=== PATIENT | female | born 1930 | race Caucasian/White ===

== ENCOUNTER 2016-10-30 11:18 | Observation (INO) | payer MEDICARE, OTHER ==
[2016-10-30] MEDS ORDERED: ANTIVERT 25 MG PO ONE (12:09)
[2016-10-30] MEDS ORDERED: ANTIVERT 25 MG ONE (12:12)
--- NOTE | 2016-10-30 12:14 | ERPHSYRPT ---
- History of Present Illness Time Seen by Provider: 10/30/16 11:47 Source: patient, family Exam Limitations: clinical condition Patient Subjective Stated Complaint: PT REPORTS DIZZINESS ET ALL OVER WEAKNESS BEGINNING YESTERDAY-DENIES UNUSUAL PAIN-DENIES UNUSUAL DIFFICULTY AMBULATING- DENIES DIFFICYTLY WITH URINATION OR RECENT ILLNESS-DENIES NUMBNESS OR TINLGING Triage Nursing Assessment: PT PALE WARM ET DRY-WEAKNESS NOTED TO LOWER EXTREMITIES THAT PT REPORTS IS NORMAL FOR HER-MOVING UPPER EXTREMITIES WITH EASE -HAND PRESCRIPTIONIST EQUAL-PUPILS REACTIVE-ANSWERING ALL QUESTIONS CORRECTLY-RESP NONLAOBRED Physician History: PATIENT COMPLAINS OF ACUTE DIZZINESS ASSOCIATED WITH WEAKNESS SINCE YESTERDAY. TOO WEAK TO STAND WITHOUT ASSISTANCE. DENIES HEADACHE, BLURRED VISION, DYSPNEA, SLURRED SPEECH, FOCAL WEAKNESS OR NUMBNESS. Timing/Duration: yesterday Severity: moderate Character of Deficits: general (difuse) Deficits: decrease ability to stand Current Cognition: alert oriented x 3 Baseline Gait: unable to walk Associated Symptoms: weakness Allergies/Adverse Reactions: codeine [Codeine] Allergy (Mild, Verified 10/30/16 11:37) "GAS IN CHEST" Penicillins Allergy (Mild, Verified 10/30/16 11:37) HANDS ITCH Home Medications: Aspirin 81 gm Chew [Baby Aspirin 81 mg Chew] 81 mg PO DAILY 12/27/15 [ History] Atenolol 25 mg PO DAILY 12/27/15 [History] Omeprazole 40 mg PO DAILY 12/27/15 [History] Tramadol HCl 50 mg [Ultram 50 mg] 50 mg PO UD 12/27/15 [History] Hx Tetanus, Diphtheria Vaccination/Date Given: No Hx Influenza Vaccination/Date Given: No Hx Pneumococcal Vaccination/Date Given: No Immunizations Up to Date: Yes - Review of Systems Constitutional: No Fever, No Chills Eyes: No Symptoms Ears, Nose, & Throat: No Symptoms Respiratory: No Symptoms, No Cough, No Dyspnea Cardiac: No Symptoms, No Chest Pain, No Edema, No Syncope Abdominal/Gastrointestinal: No Symptoms, No Abdominal Pain, No Nausea, No Vomiting, No Diarrhea Genitourinary Symptoms: No Symptoms, No Dysuria Musculoskeletal: No Symptoms, No Back Pain, No Neck Pain Skin: No Rash Neurological: Vertigo, No Dizziness, No Focal Weakness, No Sensory Changes Psychological: No Symptoms Endocrine: No Symptoms All Other Systems: Reviewed and Negative - Past Medical History Pertinent Past Medical History: Yes Neurological History: No Pertinent History ENT History: Cataracts Cardiac History: No Pertinent History Respiratory History: No Pertinent History Endocrine Medical History: No Pertinent History Musculoskeletal History: Arthritis GI Medical History: GERD, Hernia History: No Pertinent History Psycho-Social History: No Pertinent History Female Reproductive Disorders: Other Other Medical History: hx of hernia and hiatal hernia, bulging disc, - Past Surgical History Past Surgical History: Yes Neuro Surgical History: No Pertinent History Cardiac: No Pertinent History Respiratory: No Pertinent History Gastrointestinal: Appendectomy, Cholecystectomy Genitourinary: No Pertinent History, Other Musculoskeletal: Joint Replacement Female Surgical History: Hysterectomy, Tubal Ligation Other Surgical History: RECTOCELE, varicose veins stripped resulting in venous insufficiency, bladder tie up, RIGHT KNEE ARTHROPLASTY - Social History Smoking Status: Never smoker Exposure to second hand smoke: Yes Drug Use: none Patient Lives Alone: No - Nursing Vital Signs Nursing Vital Signs: Initial Vital Signs Temperature 98.8 F Temperature Source Oral Pulse Rate 68 Respiratory Rate 20 Blood Pressure [] 160/69 Pain Intensity 0 - Physical Exam General Appearance: no apparent distress, alert Eye Exam: bilateral eye: normal inspection, PERRL, EOMI Ears, Nose, Throat Exam: normal ENT inspection, moist mucous membranes Neck Exam: normal inspection, non-tender, supple Respiratory: normal breath sounds, lungs clear, airway intact, No respiratory distress Cardiovascular: regular rate/rhythm, No edema Gastrointestinal: soft, normal bowel sounds, No tenderness, No distention Back Exam: normal inspection Extremity Exam: normal inspection, normal range of motion, No pedal edema Peripheral Pulses: carotid (R): 2+, carotid (L): 2+, femoral (R): 2+, femoral (L ): 2+, dorsalis-pedis (R): 2+, dorsalis-pedis (L): 2+ Mental Status: alert, oriented x 3 cook pie Exam: tongue midline Coordination/Gait: normal finger to nose, normal gait DTR: bicep (R): 2+, bicep (L): 2+, tricep (R): 2+, tricep (L): 2+, knee (R): 2+ , knee (L): 2+, ankle (R): 2+, ankle (L): 2+ Skin Exam: normal color, warm, dry, No rash SpO2 Interpretation: normal SpO2: 98 Oxygen Delivery: Room Air - Course EKG Interpreted by Me: RATE, Sinus Rhythm, NORMAL AXIS - Radiology Exams Chest X-ray Interpretation: Discussed w/ radiologist, Negative, No Infiltrates - CT Exams Head CT Interpretation: Discussed w/radiologist, No/Intracranial Hemorrhag Ordered Tests: Active Orders 24 hr Category Date Time Status Up With Assistance ROUTINE Activity 10/30/16 14:31 Ordered Admission/Status Order ROUTINE Care 10/30/16 14:31 Ordered Call Admit Doctor for Orders ON ADMISSION Care 10/30/16 14:32 Ordered Catheter-[employer] Andrea STAT Care 10/30/16 12:09 Active Code Status Order ROUTINE Care 10/30/16 14:31 Ordered EKG-ER Only STAT Care 10/30/16 12:11 Active IV Care Q6H Care 10/30/16 14:31 Ordered Neuro Checks Q2H Care 10/30/16 14:31 Ordered Telemetry ROUTINE Care 10/30/16 14:31 Ordered Vital Signs Q4H Care 10/30/16 14:31 Ordered Low Sodium Diet 10/30/16 Dinner Ordered CHEST 1 VIEW (PORTABLE) Stat Exams 10/30/16 12:10 Completed HEAD WITHOUT CONTRAST [CT] Stat Exams 10/30/16 12:10 Completed BLOOD CULTURE Stat Lab 10/30/16 13:40 Received CBC W DIFF Stat Lab 10/30/16 11:45 Completed CMP Stat Lab 10/30/16 11:45 Completed MAGNESIUM Stat Lab 10/30/16 11:45 Completed PT INR [PROTIME WITH INR] Stat Lab 10/30/16 11:45 Completed TROPONIN Q3H Lab 10/30/16 11:45 Completed TROPONIN Q3H Lab 10/30/16 16:00 Ordered TROPONIN Q3H Lab 10/30/16 19:00 Ordered TROPONIN Q3H Lab 10/30/16 22:00 Ordered TROPONIN Q3H Lab 10/31/16 01:00 Ordered TROPONIN Stat Lab 10/30/16 11:45 Completed UA W/ MICROSCOPIC Stat Lab 10/30/16 12:38 Completed Transfer Order Routine Transfer 10/30/16 14:30 Ordered Medication Summary Generic Name Dose Route Start Last Admin Trade Name Freq PRN Reason Stop Dose Admin Sodium Chloride 1,000 mls @ 50 mls/hr 10/30/16 12:15 10/30/16 12:19 Sodium Chloride 0.9% 1000 Ml IV 11/29/16 12:14 100 mls/hr .Q20H PIPPA Administration Discontinued Medications Generic Name Dose Route Start Last Admin Trade Name Karen PRN Reason Stop Dose Admin Levofloxacin/Dextrose 500 mg in 100 mls @ 100 mls/hr 10/30/16 13:34 10/30/16 13:39 Levofloxacin 500mg/100ml D5w IV 10/30/16 14:33 100 mls/hr STAT STA Administration Levofloxacin/Dextrose Confirm 10/30/16 13:36 Levofloxacin 500mg/100ml D5w Administered 10/30/16 13:37 Dose 500 mg in 100 mls @ ud IV .STK[employer] ONE Meclizine HCl 25 mg 10/30/16 12:09 10/30/16 12:15 Antivert 25 Mg PO 10/30/16 12:10 25 mg STAT ONE Administration Meclizine HCl Confirm 10/30/16 12:12 Antivert 25 Mg Administered 10/30/16 12:13 Dose 25 mg .ROUTE .[employer] ONE Lab/Rad Data: Laboratory Result Diagrams 10/30/16 11:45 10/30/16 11:45 Laboratory Results 10/30/16 10/30/16 10/30/16 Range/Units 12:38 11:45 11:45 WBC (4.0-10.5) K/mm3 RBC (4.1-5.4) M/mm3 Hgb (12.0-16.0) gm/dl Hct (35-47) % MCV (78-100) fl MCH (26-32) pg MCHC (32-36) g/dl RDW (11.5-14.0) % Plt Count (150-450) K/mm3 MPV (6-9.5) fl Gran % (36.0-66.0) % Lymphocytes % (24.0-44.0) % Monocytes % (0.0-12.0) % Eosinophils % (0.00-5.0) % Basophils % (0.0-0.4) % Basophils # (0-0.4) INR 1.06 (0.8-3.0) Sodium (136-145) mEq/L Potassium (3.5-5.1) mEq/L Chloride (98-107) mEq/L Carbon Dioxide (21-32) mEq/L Anion Gap (5-15) MEQ/L BUN (9-20) mg/dL Creatinine (0.55-1.30) mg/dl Estimated GFR ML/MIN Glucose (70-110) MG/DL Calcium (8.5-10.1) mg/dL Magnesium (1.8-2.4) mg/dL Total Bilirubin (0.2-1.0) mg/dL AST (15-37) U/L ALT (12-78) U/L Alkaline Phosphatase (46-116) U/L Troponin I < 0.017 (0.000-0.056) ng/ml Serum Total Protein (6.4-8.2) gm/dL Albumin (3.4-5.0) g/dL Ur Collection Type CATH Urine Color YELLOW (YELLOW) Urine Appearance CLEAR (CLEAR) Urine pH 6.0 (5-6) Ur Specific [place] 1.010 (1.005-1.025) Urine Protein NEGATIVE (Negative) Urine Glucose (UA) NEGATIVE (NEGATIVE) mg/dL Urine Ketones NEGATIVE (NEGATIVE) Urine Nitrite NEGATIVE (NEGATIVE) Urine Bilirubin NEGATIVE (NEGATIVE) Urine Urobilinogen 0.2 (0-1) mg/dL Urine WBC (Auto) MODERATE (NEGATIVE) Urine RBC (Auto) TRACE-INTACT (0-5) Eliot/ul Urine Microscopic RBC 0-2 (0-2) /HPF Urine Microscopic WBC 15-25 (0-5) /HPF Ur Epithelial Cells MODERATE (FEW) /HPF Urine Bacteria MODERATE (NEGATIVE) /HPF Specimen Received 10/30/16 1230 10/30/16 10/30/16 Range/Units 11:45 11:45 WBC 5.6 (4.0-10.5) K/mm3 RBC 4.32 (4.1-5.4) M/mm3 Hgb 12.8 (12.0-16.0) gm/dl Hct 39.9 (35-47) % MCV 92.4 (78-100) fl MCH 29.6 (26-32) pg MCHC 32.1 (32-36) g/dl RDW 13.5 (11.5-14.0) % Plt Count 190 (150-450) K/mm3 MPV 12.0 H (6-9.5) fl Gran % 58.0 (36.0-66.0) % Lymphocytes % 27.8 (24.0-44.0) % Monocytes % 10.6 (0.0-12.0) % Eosinophils % 3.2 (0.00-5.0) % Basophils % 0.4 (0.0-0.4) % Basophils # 0.02 (0-0.4) INR (0.8-3.0) Sodium 139 (136-145) mEq/L Potassium 4.1 (3.5-5.1) mEq/L Chloride 106 (98-107) mEq/L Carbon Dioxide 24.3 (21-32) mEq/L Anion Gap 13.1 (5-15) MEQ/L BUN 21 H (9-20) mg/dL Creatinine 1.29 (0.55-1.30) mg/dl Estimated GFR 42 ML/MIN Glucose 105 (70-110) MG/DL Calcium 9.4 (8.5-10.1) mg/dL Magnesium 1.8 (1.8-2.4) mg/dL Total Bilirubin 0.60 (0.2-1.0) mg/dL AST 22 (15-37) U/L ALT 11 L (12-78) U/L Alkaline Phosphatase 64 (46-116) U/L Troponin I < 0.017 (0.000-0.056) ng/ml Serum Total Protein 7.2 (6.4-8.2) gm/dL Albumin 3.3 L (3.4-5.0) g/dL Ur Collection Type Urine Color (YELLOW) Urine Appearance (CLEAR) Urine pH (5-6) Ur Specific [place] (1.005-1.025) Urine Protein (Negative) Urine Glucose (UA) (NEGATIVE) mg/dL Urine Ketones (NEGATIVE) Urine Nitrite (NEGATIVE) Urine Bilirubin (NEGATIVE) Urine Urobilinogen (0-1) mg/dL Urine WBC (Auto) (NEGATIVE) Urine RBC (Auto) (0-5) Eliot/ul Urine Microscopic RBC (0-2) /HPF Urine Microscopic WBC (0-5) /HPF Ur Epithelial Cells (FEW) /HPF Urine Bacteria (NEGATIVE) /HPF Specimen Received - Progress Progress Note: 10/30/16 14:28 PATIENT GIVEN ORAL ANTIVERT 25MG AND IV LEVAQUIN 500MG. Discussed with .: Cristopher Will see patient in: hospital (observation) (DISCUSSED WITH DR PABON AT 1350 FOR ADMISSION) - Departure Time of Disposition: 14:30 Departure Disposition: Observation Clinical Impression: ACUTE VERTIGO, URINARY TRACT INFECTION Condition: Stable Critical Care Time: No Referrals: AMRIT BABIN [Primary Care Provider] -
[2016-10-30] MEDS: Sodium Chloride 0.9% 1000 ML 1,000 ML IV SCH (12:19)
[2016-10-30 12:20] LABS: BASOPHIL % 0.4 % (0.0-0.4); Eosinophil % 3.2 % (0.00-5.0); Lymphocytes % 27.8 % (24.0-44.0); Mean Cell Volume 92.4 fl (78-100); Mean Corpuscular Hemoglobin 29.6 pg (26-32); Monocytes % 10.6 % (0.0-12.0); Platelet Count 190 K/mm3 (150-450); Red Blood Count 4.32 M/mm3 (4.1-5.4); Red Cell Distribution Width 13.5 % (11.5-14.0); White Blood Count 5.6 K/mm3 (4.0-10.5)
[2016-10-30 12:38] LABS: INR 1.06 (0.8-3.0); PROTIME 11.8 SECONDS (9.95-12.35)
[2016-10-30 12:50] LABS: ALBUMIN 3.3 g/dL (3.4-5.0); ALKALINE PHOSPHATASE 64 U/L (46-116); ANION GAP 13.1 MEQ/L (5-15); BLOOD UREA NITROGEN 21 mg/dL (9-20); CHLORIDE 106 mEq/L (98-107); Carbon Dioxide 24.3 mEq/L (21-32); Glucose 105 MG/DL (70-110); MAGNESIUM 1.8 mg/dL (1.8-2.4); Potassium 4.1 mEq/L (3.5-5.1); SGOT/AST 22 U/L (15-37); SGPT/ALT 11 U/L (12-78); SODIUM 139 mEq/L (136-145); Total Protein 7.2 gm/dL (6.4-8.2)
[2016-10-30 12:51] LABS: TROPONIN < 0.017 ng/ml (0.000-0.056)
[2016-10-30 13:18] LABS: Collection Type CATH
[2016-10-30 13:19] LABS: COMPLETE URINE MICROSCOPIC? YES
[2016-10-30 13:27] LABS: Bacteria MODERATE /HPF (NEGATIVE); Epithelial Cells MODERATE /HPF (FEW); WBC 15-25 /HPF (0-5)
--- NOTE | 2016-10-30 13:31 | XRAY ---
Exam: CT of the head without IV contrast from 10/30/2016. CTDI: 68.32 Comparison: None. Indication: Unsteady gait, dizziness, weakness. Technique: Non-IV contrast axial images were obtained through the brain. Reconstructed coronal and sagittal images were created and reviewed. Findings: The ventricles appear of unremarkable size and configuration for the patient's stated age of almost 86 years. No focal mass effect or midline shift is seen. I see no acute intracranial bleed or abnormal extra-axial fluid collection. There is a subtle low-attenuation density within the lower aspect of the right lentiform nucleus on axial image #22 which could possibly be due to an old lacunar infarct. I also note mild bilateral periventricular and subcortical white matter changes which are likely due to chronic small vessel ischemic disease. A large low-attenuation density to suggest a major cerebral or cerebellar artery territory infarct is not seen. The cortical sulci and visualized fissures are mildly prominent, but not inappropriate for the patient's age. Minimal vascular calcification is seen within the distal left vertebral artery and proximal basilar artery. There is also minimal circumferential atherosclerotic vascular calcification within the carotid siphons. The calvarium of the disc level appears intact. The visualized paranasal sinuses appear clear. There is slight deviation of the nasal septum toward the left. Mastoid air cells appear clear. Impression: 1. No acute intracranial bleed or other acute intracranial process is seen. 2. No acute low-attenuation territorial infarct within a major cerebral or cerebellar artery distribution is seen. 3. I do note some mild chronic microvascular disease as well as perhaps an old punctate lacunar infarct within the inferior aspect of the right lentiform nucleus. 4. Mild generalized brain volume loss/atrophy, not inappropriate for the patient's advanced age.
[2016-10-30] MEDS ORDERED: Levofloxacin 500MG/100ML D5W 500 MG/100 ML BAG IV STA (13:34)
[2016-10-30] MEDS ORDERED: Levofloxacin 500MG/100ML D5W 500 MG/100 ML BAG IV ONE (13:36)
--- NOTE | 2016-10-30 13:37 | XRAY ---
Exam: AP upright portable chest film from 10/30/2016. Comparison: Two-view chest series from 03/19/2012. Indication: Cough, weakness. Findings: The film was obtained in a lordotic projection. The heart size and contour are normal. Atherosclerotic vascular calcification is seen within the aortic knob. The devante and mediastinal structures appear unremarkable. No air space infiltrate, vascular congestion, pneumothorax, or pleural fluid is seen. I believe some skin folds overlie the lateral aspect of the right hemithorax. EKG leads are seen in place. The visualized bones appear grossly intact. I see findings suggestive of moderate osteoarthritis and chronic rotator cuff disease of the right shoulder. Impression: 1. No acute cardiopulmonary process is seen.
[2016-10-30] MEDS ORDERED: Zofran 4 MG/2 ML VIAL IV PRN (14:31)
[2016-10-30] MEDS ORDERED: TYLENOL 325 MG PO PRN (14:31)
[2016-10-30] MEDS ORDERED: TENORMIN 50 MG PO ONE (14:34)
[2016-10-30] MEDS ORDERED: ULTRAM 50 MG PO PRN (16:07)
[2016-10-31] MEDS: Sodium Chloride 0.9% 1000 ML 1,000 ML IV SCH (04:02)
--- NOTE | 2016-10-31 08:07 | PCM.HP ---
History of Present Illness - Chief Complaint Chief Complaint: acute vertigo and uti Date: 10/31/16 History of Present Illness: is a 85 year old female. who lives at home with her son and has had chronic problems worsening with her gait since a fall about 18 months ago and had the knee worked on but continues to have pain in the upper back and neck as well as tension there also. She ambulates with the walker in the home but does not leave the home. She has significant help in adl's she states from her son. She has been under extreme stress the last 1.5 weeks with 3 close family members dieing in that period of time. She woke up early this am to urinate as she does about every hour usually and was unable to walk on her own. She has difficulty describing why she was unable to walk denies the room spinning of being off balance or being weak in any certain place just states she couldn't do it. She was leaning to one side she thinks. With that she was brought to the ED. She has chronic difficulty with urinary incontinence for many years now. she denies burning with urination abdominal pain nausea or vomiting. This am she has her chronic weakness, but no dizziness, or inability to walk or focal findings. She does have a chronic tension in her neck resulting in chronic neck and head pain posteriorly that is present today. - Review of Systems Constitutional: Fatigue, Weakness, No Fever, No Chills Eyes: No Symptoms Ears, Nose, & Throat: No Symptoms Respiratory: No Cough, No Short Of Breath Cardiac: No Chest Pain, No Edema, No Syncope Abdominal/Gastrointestinal: No Abdominal Pain, No Nausea, No Vomiting, No Diarrhea Genitourinary Symptoms: Frequency, Incontinence, Urgency, No Dysuria, No Flank Pain Musculoskeletal: Arthralgias, Back Pain, Neck Pain, Joint Pain, No Injury, No Joint Redness, No Joint Swelling Skin: No Cellulitis, No Rash Neurological: Gait Changes, Headache, No Dizziness, No Focal Weakness, No Parasthesia, No Seizure, No Sensory Changes Psychological: No Symptoms Endocrine: No Symptoms Hematologic/Lymphatic: No Symptoms Immunological/Allergic: No Symptoms Medications & Allergies Home Medications: Home Medication List Aspirin 81 gm Chew [Baby Aspirin 81 mg Chew] 81 mg PO DAILY 12/27/15 [ History Confirmed 10/30/16] Omeprazole 40 mg PO DAILY 12/27/15 [History Confirmed 10/30/16] Tramadol HCl 50 mg [Ultram 50 mg] 50 mg PO UD 12/27/15 [History Confirmed 10/30/16] Duloxetine HCl 30 mg [Cymbalta 30 MG Capsule] 30 mg PO QAM #30 cap [Rx] Allergies/Adverse Reactions: Allergies Allergy/AdvReac Type Severity Reaction Status Date / Time codeine [Codeine] Allergy Mild Verified 10/30/16 11:37 Penicillins Allergy Mild Verified 10/30/16 11:37 - Past Medical History Past Medical History: Yes Neurological History: No Pertinent History ENT History: Cataracts Cardiac History: No Pertinent History Respiratory History: No Pertinent History Endocrine Medical History: No Pertinent History Musculoskelatal History: Arthritis GI Medical History: GERD, Hernia History: No Pertinent History Pyscho-Social History: No Pertinent History Reproductive Disorders: Other Comment: hx of hernia and hiatal hernia, bulging disc, - Female History Are you now?: No - Past Surgical History Past Surgical History: Yes Neuro Surgical History: No Pertinent History Cardiac History: No Pertinent History Respiratory Surgery: No Pertinent History GI Surgical History: Appendectomy, Cholecystectomy Genitourinary Surgical Hx: No Pertinent History, Other Musculskeletal Surgical Hx: Joint Replacement Female Surgical History: Hysterectomy, Tubal Ligation Other Surgical History: RECTOCELE, varicose veins stripped resulting in venous insufficiency, bladder tie up, RIGHT KNEE ARTHROPLASTY - Social History Smoking Status: Never smoker Exposure to second hand smoke: Yes Alcohol: None Drug Use: none - Physical Exam Vital Signs: Vital Signs - 24 hr Temp Pulse Resp BP BP Pulse Ox 10/31/16 07:45 98.3 F 58 L 18 121/60 99 10/31/16 04:26 97.8 F 61 24 122/58 97 10/30/16 23:50 97.9 F 66 20 126/59 98 10/30/16 20:00 97.4 F 68 20 123/58 99 10/30/16 17:00 97.4 F 63 16 142/64 96 10/30/16 16:08 69 150/65 10/30/16 15:24 97.5 F 69 20 150/65 99 10/30/16 14:35 98 10/30/16 14:00 68 20 97 10/30/16 13:08 70 18 95 10/30/16 12:09 108 H 20 160 98 10/30/16 11:34 98.8 F 77 20 160/69 98 10/30/16 11:33 98.8 F 77 20 160/ 98 General Appearance: no apparent distress, alert Neurologic Exam: alert, oriented x 3, cooperative, normal mood/affect, No motor deficits Eye Exam: PERRL/EOMI, eyes nml inspection Ears, Nose, Throat Exam: pharynx normal, moist mucous membranes Neck Exam: normal inspection, non-tender, supple, full range of motion, other ( some muslce spasm and muscle point tenderness throughout posterior trapezius bilaterally) Respiratory Exam: normal breath sounds, lungs clear, No respiratory distress Cardiovascular Exam: regular rate/rhythm, normal heart sounds, normal peripheral pulses Gastrointestinal/Abdomen Exam: soft, normal bowel sounds, No tenderness, No mass Back Exam: normal inspection, normal range of motion, No CVA tenderness, No vertebral tenderness Extremity Exam: normal inspection, normal range of motion, pelvis stable Skin Exam: normal color, warm, dry, No rash Lymphatic Exam: No adenopathy Results - Labs Lab/Micro Results: Lab Results-Last 24 Hours 10/30/16 10/30/16 10/30/16 Range/Units 16:05 19:25 22:19 Troponin I < 0.017 < 0.017 < 0.017 (0.000-0.056) ng/ml 10/31/16 Range/Units 01:15 Troponin I < 0.017 (0.000-0.056) ng/ml Assessment/Plan (1) Vertigo Status: Acute Assessment & Plan: resolved now with no evidence of focal deficit PT is working with patient and does very well with walking with walker with some adjustments to it. she had treatment to her trapezius strain with message by them with her increased chronic pains and muscle tenderness, her anxiety and the 3 recent deaths in the family will trial cymbalta once a day and titrate up if tolerated. discharge to home today Code(s): R42 - DIZZINESS AND GIDDINESS (2) Impaired gait and mobility Status: Acute Code(s): R26.89 - OTHER ABNORMALITIES OF GAIT AND MOBILITY (3) Urinary incontinence Status: Chronic Code(s): R32 - UNSPECIFIED URINARY INCONTINENCE (4) Anxiety Status: Acute Code(s): F41.9 - ANXIETY DISORDER, UNSPECIFIED (5) Chronic tension headaches Status: Chronic (6) Trapezius muscle spasm Status: Chronic Code(s): M62.838 - OTHER MUSCLE SPASM
[2016-10-31] MEDS ORDERED: NON-FORMULARY ITEM (Omeprazole [Omeprazole] 40 MG) PO SCH (10:00)
[2016-10-31] MEDS ORDERED: ECOTRIN 81 MG PO SCH (10:00)
[2016-10-31] MEDS ORDERED: Levaquin 250MG/50ML D5W 250 MG/50 ML BAG IV SCH (10:00)
[2016-10-31] MEDS ORDERED: Cymbalta 30 MG Capsule PO SCH (10:00)
[2016-10-31] MEDS ORDERED: Levofloxacin 500MG/100ML D5W 500 MG/100 ML BAG IV SCH (10:00)
[2016-10-31] MEDS ORDERED: Protonix 40MG Tablet PO SCH (10:00)
[2016-10-31 11:59] VITALS: BP 160/69; PULSE 56; O2SAT 100
--- NOTE | 2016-10-31 12:14 | PCM.DCORD ---
- Discharge Discharge Date: 10/31/16 Disposition: Home, Self-Care Condition: Stable Prescriptions: New Duloxetine HCl 30 mg [Cymbalta 30 MG Capsule] 30 mg PO QAM #30 cap Continue Tramadol HCl 50 mg [Ultram 50 mg] 50 mg PO UD Omeprazole 40 mg PO DAILY Aspirin 81 gm Chew [Baby Aspirin 81 mg Chew] 81 mg PO DAILY Follow up with: AMRIT BABIN [Primary Care Provider] - 11/07/16 1:30 pm
== END 2016-10-31 14:20 | disposition home or self-care (01) ==
LOC: ED 11:18 → MED SURG 15:01
PROVIDERS: ADMIT Family Medicine; ATTEND Family Medicine
DX: R42 Dizziness and giddiness (principal); R26.89 Other abnormalities of gait and mobility; R32 Unspecified urinary incontinence; F41.9 Anxiety disorder, unspecified; G44.229 Chronic tension-type headache, not intractable; M62.838 Other muscle spasm; K21.9 Gastro-esophageal reflux disease without esophagitis; Z79.899 Other long term (current) drug therapy
CPT/HCPCS: 36000; 36415; 51702; 70450; 71010; 80053; 81000; 83735; 84484; 85025; 85610; 87040; 87077; 87086; 87186; 93005; 93268; 96360; 96361; 96365; 99285; G0378; J1956; A9270-GY

== ENCOUNTER 2017-04-10 16:29 | Emergency (ER) | payer MEDICARE, OTHER ==
[2017-04-10 16:51] VITALS: O2SAT 99
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
[2017-04-10 18:30] VITALS: BP 157/91; PULSE 72
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
== END 2017-04-10 18:40 | disposition home or self-care (01) ==
LOC: ED 16:29
PROC: 3E1B78Z Irrigation of Ear using Irrigating Substance, Via Natural or Artificial Opening (ICD-10-PCS; principal; 2017-04-10)
DX: M54.5 Low back pain (principal); V43.62XA Car passenger injured in collision with other type car in traffic accident, initial encounter; H61.21 Impacted cerumen, right ear
CPT/HCPCS: 69209; 69210; 72100; 99283

== ENCOUNTER 2018-07-20 22:13 | Observation (INO) | payer MEDICARE, OTHER ==
[2018-07-20] MEDS ORDERED: BENADRYL 50 MG/ML IV ONE (22:22)
[2018-07-20] MEDS ORDERED: TORAdol 30 mg Injection IV ONE (22:22)
[2018-07-20] MEDS ORDERED: Zanaflex 4 MG PO ONE (22:25)
[2018-07-20] MEDS ORDERED: BENADRYL 50 MG/ML ONE (22:27)
[2018-07-20] MEDS ORDERED: Sodium Chloride 0.9% 1000 ML 1,000 ML ONE (22:27)
[2018-07-20] MEDS ORDERED: TORAdol 30 mg Injection ONE (22:27)
[2018-07-20] MEDS ORDERED: Sodium Chloride 0.9% 1000 ML 1,000 ML IV SCH (22:30)
--- NOTE | 2018-07-20 22:32 | ERPHSYRPT ---
- History of Present Illness Time Seen by Provider: 07/20/18 22:27 Source: patient, EMS Exam Limitations: no limitations Physician History: pt developed sudden onset right neck pain sitting in recliner this evening - no hx trauma. the pt says that she has had this before over the past months-years but was more severe today. no neuro deficits, no cp or shortness of breath, no abd pain or n/v - no hs heart dx or major medical problems no bruits noted. tonight the pain radiates onto the right face and mandaen fundi are benign . pulses are same bilateral. Timing/Duration: today Method of Injury: other (no known injury) Quality: sharp Back Pain Location: C-spine, paraspinous muscles Severity of Pain-Max: severe Severity of Pain-Current: moderate Modifying Factors: Improves With: movement Associated Symptoms: denies symptoms Previous symptoms: same symptoms as today, no recent treatment Allergies/Adverse Reactions: codeine [Codeine] Allergy (Mild, Verified 07/20/18 22:27) "GAS IN CHEST" Penicillins Allergy (Mild, Verified 07/20/18 22:27) HANDS ITCH Home Medications: No Reportable Medications [No Reported Medications] 07/20/18 [History] Hx Tetanus, Diphtheria Vaccination/Date Given: Yes (up to date) Hx Influenza Vaccination/Date Given: No Hx Pneumococcal Vaccination/Date Given: No - Review of Systems Constitutional: No Fever, No Chills Eyes: No Symptoms Ears, Nose, & Throat: No Symptoms Respiratory: No Cough, No Dyspnea Cardiac: No Chest Pain, No Edema, No Syncope Abdominal/Gastrointestinal: No Abdominal Pain, No Nausea, No Vomiting, No Diarrhea Genitourinary Symptoms: No Dysuria Musculoskeletal: Neck Pain, No Back Pain Skin: No Rash Neurological: No Dizziness, No Focal Weakness, No Sensory Changes Psychological: No Symptoms Endocrine: No Symptoms Hematologic/Lymphatic: No Symptoms Immunological/Allergic: No Symptoms All Other Systems: Reviewed and Negative - Past Medical History Pertinent Past Medical History: Yes Neurological History: No Pertinent History ENT History: Cataracts Cardiac History: No Pertinent History Respiratory History: No Pertinent History Endocrine Medical History: No Pertinent History Musculoskeletal History: Arthritis GI Medical History: GERD, Hernia History: No Pertinent History Psycho-Social History: No Pertinent History Female Reproductive Disorders: Other Other Medical History: hx of hernia and hiatal hernia, bulging disc, - Past Surgical History Past Surgical History: Yes Neuro Surgical History: No Pertinent History Cardiac: No Pertinent History Respiratory: No Pertinent History Gastrointestinal: Appendectomy, Cholecystectomy Genitourinary: No Pertinent History, Other Musculoskeletal: Joint Replacement Female Surgical History: Hysterectomy, Tubal Ligation Other Surgical History: RECTOCELE, varicose veins stripped resulting in venous insufficiency, bladder tie up, RIGHT KNEE ARTHROPLASTY - Social History Smoking Status: Never smoker Exposure to second hand smoke: No Drug Use: none Patient Lives Alone: No - Nursing Vital Signs Nursing Vital Signs: Initial Vital Signs Temperature 97.5 F 07/20/18 22:16 Pulse Rate 88 07/20/18 22:16 Respiratory Rate 20 07/20/18 22:16 Blood Pressure 170/76 07/20/18 22:16 O2 Sat by Pulse Oximetry 98 07/20/18 22:16 Pain Scale Pain Intensity [] 10 Pain Intensity 3 - Physical Exam General Appearance: mild distress, alert Eye Exam: PERRL/EOMI, eyes nml inspection Neck Exam: normal inspection, supple, limited range of motion, other (right muscle tenderness), No meningismus, No carotid bruit, No midline tenderness Respiratory Exam: normal breath sounds, lungs clear, No respiratory distress Cardiovascular Exam: regular rate/rhythm, normal heart sounds Gastrointestinal Exam: soft, No tenderness, No mass Extremity Exam: normal inspection, normal range of motion, No calf tenderness, No pedal edema Peripheral Pulses: carotid (R): 2+, carotid (L): 2+, femoral (R): 2+, femoral (L ): 2+, dorsalis-pedis (R): 2+, dorsalis-pedis (L): 2+ Neurologic Exam: alert, oriented x 3, cooperative, hip hop artist II-XII nml as tested, normal mood/affect, nml station & gait, sensation nml, No motor deficits, No sensory deficit Skin Exam: normal color, warm, dry, No rash - Course Nursing assessment & vital signs reviewed: Yes EKG Interpreted by Me: Sinus Rhythm, Left Fitzpatrick Deviation, LAFB, Right Bundle Branch Block, Non-specific ST Changes, Other (similar to previous) - Radiology Exams Chest X-ray Interpretation: Reviewed by me, No Pneumothorax, Other (granulomata and atelectasis) - CT Exams Head CT Interpretation: Tele-radiologist Report, No/Intracranial Hemorrhag, Other ( old vascular dx) Cervical Spine CT Interpretation: Tele-radiologist Report, DJD, Other (DDD, thyroid nodules) Ordered Tests: Active Orders 24 hr Category Date Time Status EKG-ER Only STAT Care 07/20/18 22:26 Active IV Insertion STAT Care 07/20/18 22:25 Active CERVICAL SPINE WO CONTRAST [CT] Stat Exams 07/20/18 22:22 Taken CHEST 2 VIEWS (PA AND LAT) Stat Exams 07/20/18 22:[address] ANGIOGRAPHY NECK [CT] Stat Exams 07/20/18 23:56 Taken HEAD WITHOUT CONTRAST [CT] Stat Exams 07/20/18 22:26 Taken BMP Stat Lab 07/20/18 23:00 Completed CBC W DIFF Stat Lab 07/20/18 23:00 Completed D-DIMER QUANTITATION Stat Lab 07/20/18 23:00 Completed SED RATE [Erythrocyte Sedimentation Rate] Stat Lab 07/20/18 23:00 Completed Medication Summary Generic Name Dose Route Start Last Admin Trade Name Freq PRN Reason Stop Dose Admin Sodium Chloride 1,000 mls @ 50 mls/hr 07/20/18 22:30 07/20/18 22:31 Sodium Chloride 0.9% 1000 Ml IV 08/19/18 22:29 50 mls/hr .Q20H PIPPA Administration Discontinued Medications Generic Name Dose Route Start Last Admin Trade Name Freq PRN Reason Stop Dose Admin Diphenhydramine HCl 25 mg 07/20/18 22:22 07/20/18 22:32 Benadryl 50 Mg/Ml IV 07/20/18 22:23 25 mg STAT ONE Administration Diphenhydramine HCl Confirm 07/20/18 22:27 Benadryl 50 Mg/Ml Administered 07/20/18 22:28 Dose 50 mg .ROUTE .STK-MED ONE Ketorolac Tromethamine 30 mg 07/20/18 22:22 07/20/18 22:32 Toradol 30 Mg Injection IV 07/20/18 22:23 30 mg STAT ONE Administration Ketorolac Tromethamine Confirm 07/20/18 22:27 Toradol 30 Mg Injection Administered 07/20/18 22:28 Dose 30 mg .ROUTE .STK-MED ONE Orphenadrine Citrate 30 mg 07/20/18 22:58 07/20/18 23:02 Norflex 60 Mg/2 Ml IV 07/20/18 22:59 30 mg STAT ONE Administration Orphenadrine Citrate Confirm 07/20/18 23:00 Norflex 60 Mg/2 Ml Administered 07/20/18 23:01 Dose 60 mg .ROUTE .STK-MED ONE Tizanidine HCl 4 mg 07/20/18 22:25 07/20/18 22:32 Zanaflex 4 Mg PO 07/20/18 22:26 4 mg STAT ONE Administration Lab/Rad Data: Laboratory Result Diagrams 07/20/18 23:00 07/20/18 23:00 Laboratory Results 07/20/18 07/20/18 07/20/18 Range/Units 23:00 23:00 23:00 WBC (4.0-10.5) K/mm3 RBC (4.1-5.4) M/mm3 Hgb (12.0-16.0) gm/dl Hct (35-47) % MCV (78-100) fl MCH (26-32) pg MCHC (32-36) g/dl RDW (11.5-14.0) % Plt Count (150-450) K/mm3 MPV (6-9.5) fl Gran % (36.0-66.0) % Eos # (Auto) (0-0.5) Absolute Lymphs (auto) (1.0-4.6) Absolute Monos (auto) (0.0-1.3) Lymphocytes % (24.0-44.0) % Monocytes % (0.0-12.0) % Eosinophils % (0.00-5.0) % Basophils % (0.0-0.4) % Absolute Granulocytes (1.4-6.9) Basophils # (0-0.4) ESR 27 H (0-20) mm/hr D-Dimer 1118 H* (215-500) ng/mL Sodium 137 (137-145) mmol/L Potassium 4.7 (3.5-5.1) mmol/L Chloride 106 (98-107) mmol/L Carbon Dioxide 25 (22-30) mmol/L Anion Gap 10.8 (5-15) MEQ/L BUN 19 H (7-17) mg/dL Creatinine 1.08 H (0.52-1.04) mg/dL Estimated GFR 50.9 ML/MIN Glucose 109 H (74-106) mg/dL Calcium 9.0 (8.4-10.2) mg/dL 07/20/18 Range/Units 23:00 WBC 8.3 (4.0-10.5) K/mm3 RBC 4.34 (4.1-5.4) M/mm3 Hgb 13.1 (12.0-16.0) gm/dl Hct 40.7 (35-47) % MCV 93.8 (78-100) fl MCH 30.2 (26-32) pg MCHC 32.2 (32-36) g/dl RDW 13.4 (11.5-14.0) % Plt Count 218 (150-450) K/mm3 MPV 11.3 H (6-9.5) fl Gran % 76.0 H (36.0-66.0) % Eos # (Auto) 0.18 (0-0.5) Absolute Lymphs (auto) 1.25 (1.0-4.6) Absolute Monos (auto) 0.55 (0.0-1.3) Lymphocytes % 15.0 L (24.0-44.0) % Monocytes % 6.6 (0.0-12.0) % Eosinophils % 2.2 (0.00-5.0) % Basophils % 0.2 (0.0-0.4) % Absolute Granulocytes 6.34 (1.4-6.9) Basophils # 0.02 (0-0.4) ESR (0-20) mm/hr D-Dimer (215-500) ng/mL Sodium (137-145) mmol/L Potassium (3.5-5.1) mmol/L Chloride (98-107) mmol/L Carbon Dioxide (22-30) mmol/L Anion Gap (5-15) MEQ/L BUN (7-17) mg/dL Creatinine (0.52-1.04) mg/dL Estimated GFR ML/MIN Glucose (74-106) mg/dL Calcium (8.4-10.2) mg/dL - Progress Progress: improved, re-examined Progress Note: 07/20/18 23:54 pt has elevated d dimer which could be from dissection - discussed risk/ benefit of CTA and pt wishes to proceed - pt has slight dec RFT but is within our rad protocols to receive this, 07/21/18 01:[address] Nicholas , pt , and family - it is requiring pain meds at a level best for obs to minimise potential for complciations. and all agree with this plan; Discussed with .: Cristopher Will see patient in: hospital (observation) Counseled pt/family regarding: lab results, diagnosis, need for follow-up, rad results - Departure Time of Disposition: 01:58 Departure Disposition: Observation Clinical Impression: intractable neck pain, cervical spine stenosis, DJD/DDD, Elevated sedimentation rate, thyroid nodules Condition: Good Critical Care Time: No Referrals: AMRIT BABIN [ACTIVE STAFF] -
[2018-07-20] MEDS ORDERED: Norflex 60 MG/2 ML IV ONE (22:58)
[2018-07-20] MEDS ORDERED: Norflex 60 MG/2 ML ONE (23:00)
[2018-07-20 23:08] LABS: BASOPHIL % 0.2 % (0.0-0.4); Basophil (Absolute #) 0.02 (0-0.4); Eosinophil % 2.2 % (0.00-5.0); Eosinophil (Absolute #) 0.18 (0-0.5); Granulocyte Absolute (ANC) 6.34 (1.4-6.9); Hematocrit 40.7 % (35-47); Hemoglobin 13.1 gm/dl (12.0-16.0); Lymphocyte (Absolute #) 1.25 (1.0-4.6); Mean Cell Volume 93.8 fl (78-100); Mean Corpuscular Hemoglobin 30.2 pg (26-32); Mean Corpuscular Hgb Concent. 32.2 g/dl (32-36); Mean Platelet Volume 11.3 fl (6-9.5); Monocyte (Absolute #) 0.55 (0.0-1.3); Monocytes % 6.6 % (0.0-12.0); Platelet Count 218 K/mm3 (150-450); Red Blood Count 4.34 M/mm3 (4.1-5.4); Red Cell Distribution Width 13.4 % (11.5-14.0); White Blood Count 8.3 K/mm3 (4.0-10.5)
[2018-07-20 23:18] LABS: ANION GAP 10.8 MEQ/L (5-15); Creatinine 1 1.08 mg/dL (0.52-1.04); Potassium 4.7 mmol/L (3.5-5.1)
[2018-07-21] MEDS ORDERED: TORAdol 30 mg Injection IV PRN (02:32)
[2018-07-21] MEDS ORDERED: NovoLIN R SQ PRN (02:32)
[2018-07-21] MEDS ORDERED: TYLENOL 325 MG PO PRN (02:32)
[2018-07-21] MEDS ORDERED: solu-MEDROL 125 MG IV SCH (02:32)
[2018-07-21] MEDS ORDERED: Norflex 60 MG/2 ML IV PRN (02:32)
[2018-07-21] MEDS ORDERED: DILAUDID 2 MG INJECTION IV PRN (02:32)
[2018-07-21] MEDS ORDERED: Zofran 4 MG/2 ML VIAL IV PRN (02:32)
[2018-07-21] MEDS ORDERED: Sodium Chloride 0.9% 1000 ML 1,000 ML IV SCH (02:45)
[2018-07-21] MEDS: solu-MEDROL 40 MG IV SCH ×2 (07:43→12:45)
[2018-07-21] MEDS ORDERED: ULTRAM 50 MG PO PRN (08:26)
--- NOTE | 2018-07-21 08:52 | XRAY ---
Indication: Severe neck pain radiating right face. Multiple contiguous axial images obtained through the head without contrast. Comparison: October 30, 2016. Stable age-appropriate global atrophy and mild periventricular degenerative micro-ischemia bilaterally. No acute intracranial hemorrhage, abnormal extra-axial fluid collection, or mass effect. Fourth ventricle is midline without hydrocephalus. Bony calvarium intact. Visualized paranasal sinuses and mastoid air cells are clear. Impression: Stable nonacute senile brain. Comment: Preliminary interpretation was made by [facility]. No critical discrepancy. CT DI 67.80
--- NOTE | 2018-07-21 08:56 | XRAY ---
Indication: Severe neck pain radiating right face. Multiple contiguous axial images obtained through the cervical spine. Sagittal and coronal reformatted images obtained. Comparison: None. Age-appropriate osteopenia. Axial images negative for acute fracture, suspicious bony lesions, or spinal canal stenosis. Mild C5-C7 degenerative endplate spurring. Also mild/moderate multilevel bilateral degenerative facet hypertrophy. Sagittal and coronal reformatted images demonstrates lordotic straightening, positional versus paraspinal spasm. C5-T1 disc space narrowing. No acute compression fracture, subluxation, or jumped facet normal appearing craniocervical junction. Visualized noncontrasted soft tissues demonstrates a few bilateral thyroid nodules/cysts, largest 12 mm on the right. Also mild left carotid calcifications. Lung apices clear. CT head reported separately. Impression: 1. Cervical lordotic straightening, positional versus paraspinal spasm. 2. Multilevel degenerative changes and osteopenia. 3. Negative for acute fracture/subluxation. 4. Incidental bilateral thyroid nodules/cysts. Comment: Preliminary interpretation was made by [facility]. No critical discrepancy. CT DI 60.97
--- NOTE | 2018-07-21 09:00 | XRAY ---
Indication: Severe neck pain radiating right face. Conventional contrast enhanced CTA neck was performed using 80 cc Isovue 370 contrast. Two-dimensional sagittal and coronal reformatted images obtained. Comparison: None. CT cervical spine reported separately. Visualized aortic arch demonstrate minimal arteriosclerotic calcifications without aneurysm/dissection. Normal widely patent branching right brachiocephalic, left common carotid, and left subclavian arteries. Very minimal eccentric calcifications seen in the distal right brachiocephalic artery. Examination of the right carotid circulation demonstrates tortuous common carotid artery. Normal CTA appearing common carotid, bulb, internal carotid, and external carotid arteries. Examination of the left carotid circulation demonstrates widely patent common carotid artery. Minimal calcifications at the level of the bulb slightly extending into the origin of the internal carotid artery without critical stenosis/obstruction. Remaining visualized internal carotid and external carotid arteries normal in CTA appearance. Examination of the posterior circulation demonstrates dominant left vertebral artery. No critical stenosis, obstruction, or AV malformation. Impression: 1. Minimal calcifications left carotid circulation as detailed. 2. Remaining CTA neck with contrast exam is negative. Comment: Preliminary interpretation was made by [facility]. No critical discrepancy. CT DI 27.51
--- NOTE | 2018-07-21 09:02 | XRAY ---
Indication: Neck pain. COPD. Comparison: October 30, 2016. PA/lateral chest remains hyperinflated and clear. Heart and mediastinal structures within normal limits. Stable right hemidiaphragm elevation. Bony thorax intact again with mild osteopenia and mild/moderate degenerative changes. Impression: Stable nonacute hyperinflated chest with chronic features.
--- NOTE | 2018-07-21 09:42 | HP ---
HISTORY OF PRESENT ILLNESS: This is an 87 year-old patient who presented to the emergency department with right neck pain that according to the emergency room doctor notes started just when she was sitting in her recliner. He had recently seen her on 07/11/2018 for some generalized arthritis-type pain and started her on Cymbalta 30 mg daily and refilled Tramadol 50 mg t.i.d. The patient reports the pain was sharp and she had some weakness in her right arm but states that all the pain is gone and that she has full range of motion of her neck. Review of MAR shows she has not received any IV pain medicine since being admitted to the floor. The patient is very sleepy as she has been up all night with her emergency room visit and admission to the hospital. She is a poor historian but she is appropriate. REVIEW OF SYSTEMS: No shortness of breath. No chest pain. No neck pain at this time. She reports some lower extremity edema, some pain in her right shoulder. Otherwise review of systems is negative. PAST MEDICAL HISTORY: Arthritis with knee pain. History of hypertension. Bilateral hearing loss. She has hearing aids but does not wear them all the time. Osteoporosis, recurrent falls. Osteoarthritis of multiple joints, degenerative disc disease, gastroesophageal reflux, anxiety. PAST SURGICAL HISTORY: Cholecystectomy, hernia repair. MEDICATIONS: From our office chart she takes aspirin 81 mg p.o. daily, vitamin B12, Centrum Silver 1 tablet daily, Cymbalta 30 mg daily, omeprazole 20 mg daily, tramadol 50 mg t.i.d. as needed for pain. ALLERGIES: CODEINE, PENICILLIN. SOCIAL HISTORY: Lifetime nonsmoker. Her son lives with her. FAMILY HISTORY: Her father of old age at 73. Her mother of an unknown cancer. PHYSICAL EXAMINATION: VITAL SIGNS: Temperature current 97.6F, temperature max 97.6F, heart rate 66 to 92 currently 71, respiratory rate 16 to 18, blood pressure 126 to 157 over 64 to 73, weight 94.6 kg. Oxygen saturation 94 to 98% on room air. GENERAL: The patient is lying in bed. She is sleeping. She arouses easily. CVS: She has a regular rate and rhythm. No murmurs, gallops or rubs. CHEST: Clear to auscultation bilaterally. No crackles or wheezes. ABDOMEN: Soft, nontender, nondistended with normal bowel sounds. EXTREMITIES: No clubbing, cyanosis or edema. NEURO: Strength is 5/5 in her hands and arms bilaterally. NECK: Supple, soft, nontender. She has full range of motion of her neck. SKIN: Warm, dry and intact. LABORATORY DATA AND TESTS: CBC within normal limits. D-dimer 1,118. Creatinine 1.08. Glucose 109. She had a CT scan of her head that was read as negative as well as CT of her neck with contrast which revealed no carotid or vertebral artery dissection or significant vascular disease. CT of her cervical spine without contrast that revealed some diffuse cervical arthrosis and degenerative changes. Please see the radiologist report for the full dictation. ASSESSMENT AND PLAN: 1) ACUTE NECK PAIN: This appears to have been resolved. Will have her ambulate with the nurses and possibly discharge her later today. I will restart her home tramadol and Cymbalta. 2) ARTHRITIS OF MULTIPLE JOINTS: Will continue with her current outpatient plan. 3) ELEVATED D-DIMER: She is not having any shortness of breath or chest pain so I do not feel like she has a pulmonary embolism. 4) CODE STATUS: She signed an order that she does not want to have any chest compressions or be put on a breathing machine. I confirmed this with the patient.
[2018-07-21] MEDS ORDERED: Protonix 20MG Tablet PO SCH (10:00)
[2018-07-21] MEDS ORDERED: Cymbalta 30 MG Capsule PO SCH (10:00)
[2018-07-21] MEDS ORDERED: MAALOX ES 30 ML UNIT DOSE PO PRN (11:19)
[2018-07-21 11:25] VITALS: BP 124/55; PULSE 84; O2SAT 98
--- NOTE | 2018-07-21 13:57 | PCM.DCORD ---
- Discharge Discharge Date: 07/21/18 Disposition: Home, Self-Care Condition: Good Prescriptions: New Acetaminophen 325 mg [Tylenol 325 mg] 650 mg PO Q4H PRN PRN tablet PRN Reason: Pain And/Or Fever Continue Duloxetine HCl 30 mg [Cymbalta 30 MG Capsule] 30 mg PO DAILY Additional Instructions: She also has a tramadol script that was given at her last office visit that she could take as prescribed for pain. Return to clinic or ER if any concerns. Follow up with: SHARLA GARCIA [Primary Care Provider] - 1 Week
== END 2018-07-21 14:25 | disposition home or self-care (01) ==
LOC: ED 22:13 → MED SURG 07-21 02:26
PROVIDERS: ADMIT Internal Medicine; ATTEND Internal Medicine
DX: M54.2 Cervicalgia (principal); M13.89 Other specified arthritis, multiple sites; R79.89 Other specified abnormal findings of blood chemistry; I10 Essential (primary) hypertension; M81.0 Age-related osteoporosis without current pathological fracture; K21.9 Gastro-esophageal reflux disease without esophagitis
CPT/HCPCS: 36000; 36415; 70450; 70498; 71046; 72125; 80048; 85025; 85379; 85652; 93005; 93268; 96360; 96361; 96374; 96375; 99285; G0378; J1200; J1885; J2360; J2920; J2930; A9270-GY

== ENCOUNTER 2018-10-31 08:37 | Emergency (ER) | payer MEDICARE, OTHER ==
[2018-10-31] MEDS ORDERED: Zofran 4 MG/2 ML VIAL IV ONE (08:54)
[2018-10-31] MEDS ORDERED: SUBLIMAZE 100 MCG/2 ML IV ONE (08:54)
[2018-10-31] MEDS ORDERED: Sodium Chloride 0.9% 1000 ML 1,000 ML IV SCH (09:00)
[2018-10-31] MEDS ORDERED: SUBLIMAZE 100 MCG/2 ML ONE (09:04)
[2018-10-31] MEDS ORDERED: Sodium Chloride 0.9% 1000 ML 1,000 ML ONE (09:07)
[2018-10-31] MEDS ORDERED: Zofran 4 MG/2 ML VIAL ONE (09:07)
[2018-10-31 09:31] LABS: BASOPHIL % 0.7 % (0.0-0.4); Basophil (Absolute #) 0.04 (0-0.4); Eosinophil % 3.1 % (0.00-5.0); Eosinophil (Absolute #) 0.19 (0-0.5); Granulocyte Absolute (ANC) 3.58 (1.4-6.9); Granulocytes % 58.5 % (36.0-66.0); Hematocrit 39.7 % (35-47); Lymphocyte (Absolute #) 1.72 (1.0-4.6); Lymphocytes % 28.1 % (24.0-44.0); Mean Corpuscular Hemoglobin 30.4 pg (26-32); Mean Corpuscular Hgb Concent. 32.7 g/dl (32-36); Mean Platelet Volume 11.1 fl (6-9.5); Monocyte (Absolute #) 0.59 (0.0-1.3); Monocytes % 9.6 % (0.0-12.0); Platelet Count 189 K/mm3 (150-450); Red Blood Count 4.27 M/mm3 (4.1-5.4); Red Cell Distribution Width 13.2 % (11.5-14.0); White Blood Count 6.1 K/mm3 (4.0-10.5)
[2018-10-31 09:40] LABS: ANION GAP 12.9 MEQ/L (5-15); Calcium 8.9 mg/dL (8.4-10.2); Creatinine 1 1.17 mg/dL (0.52-1.04); Potassium 4.1 mmol/L (3.5-5.1)
--- NOTE | 2018-10-31 10:04 | XRAY ---
Indication: Head injury following fall. Multiple contiguous axial images obtained through the head without contrast. Comparison: July 20, 2018. Stable age-appropriate global atrophy, mild periventricular degenerative micro-ischemia bilaterally, and tiny right basal ganglia remote lacunar infarct. Again no acute intracranial hemorrhage, abnormal extra-axial fluid collection, or mass effect. Fourth ventricle is midline without hydrocephalus. New small left frontal scalp hematoma. Bony calvarium intact. Visualized paranasal sinuses and mastoid air cells are clear. Impression: 1. New left frontal scalp hematoma. No underlying fracture or acute intracranial abnormalities. 2. Stable atrophy, degenerative micro-ischemia and right basal ganglia remote lacunar infarct. CTDI 50.87
--- NOTE | 2018-10-31 10:07 | XRAY ---
Indication: Neck pain following fall. Multiple contiguous axial images obtained through the cervical spine. Sagittal and coronal reformatted images obtained. Comparison: July 20, 2018. Stable osteopenia. Axial images again negative for acute fracture, suspicious bony lesions, or spinal canal stenosis. Stable C5-C7 degenerative endplate spurring and multilevel bilateral degenerative facet hypertrophy. Sagittal and coronal reformatted images again demonstrates cervical lordotic straightening and C5-T1 disc space narrowing unchanged. New incomplete vertical fracture involving base of the odontoid process on the left, best seen on coronal reformatted images. No acute compression fracture, subluxation, or jumped facet. Normal-appearing craniocervical junction. Visualized noncontrasted soft tissues again demonstrates tiny bilateral thyroid nodules/cysts and mild left carotid calcifications. Lung apices are clear. Impression: 1. New incomplete C2 odontoid base fracture on the left. 2. Stable osteopenia, cervical lordotic straightening, multilevel degenerative changes, and thyroid nodules/cysts. CTDI 53.11
--- NOTE | 2018-10-31 10:13 | XRAY ---
Indication: Low back pain following fall. Multiple contiguous axial images obtained through the lumbar spine. Sagittal and coronal reformatted images obtained. Comparison: Lumbar radiograph April 10, 2017. Axial images again demonstrates osteopenia and moderate/advanced multilevel degenerative spondylosis including multilevel bilateral degenerative facet arthropathy and L2-L5 degenerative vacuum disc phenomena. Sagittal and coronal reformatted images demonstrates stable remote-appearing L1-L2 opposing endplate fractures and grade 1 L4 anterolisthesis. No acute fracture or new subluxation. Visualized noncontrasted soft tissues demonstrates stable moderate scattered aortoiliac calcifications without AAA. Impression: 1. Stable osteopenia, multilevel degenerative spondylosis, grade 1 L4 spondylolisthesis, and arteriosclerotic disease. 2. No new/acute findings. CTDI 78.05
--- NOTE | 2018-10-31 10:15 | XRAY ---
Indication: Pain following fall. Comparison: Pelvis exam December 27, 2015. AP pelvis and 2 views of the left and right hip demonstrate stable osteopenia, lower lumbar degenerative spondylosis, pubic symphysis degenerative changes, mild bilateral hip degenerative joint space narrowing, right pelvic surgical clips, and scattered vascular calcifications including pelvic phleboliths. No new/acute findings.
--- NOTE | 2018-10-31 10:19 | XRAY ---
Indication: Pain following fall. Comparison: December 27, 2015. 3 views of the left knee demonstrates interval total knee arthroplasty with intact prosthesis/articulation. Stable osteopenia and tiny medial lower leg soft tissue calcified granulomas. No other bony, articular, or soft tissue abnormalities.
--- NOTE | 2018-10-31 10:40 | ERPHSYRPT ---
- History of Present Illness Time Seen by Provider: 10/31/18 08:44 Source: patient Exam Limitations: clinical condition Patient Subjective Stated Complaint: pt here for a fall at home, she states she was going to bathroom and lost balance. she was unable to get herself up, no loc , Triage Nursing Assessment: pt arrived per ambulance,in c collar, alert, resp easy, skin w/d/p. has bruise to left arm, contusion to left side of foreahead, and laceraton above left eyebrow,2cm in length Physician History: PATIENT WITH A HISTORY OF DEPRESSION AND GERD COMPLAINS OF A SLIP AND FALL IN HER BATHROOM, STRUCK HER FOREHEAD, HAS ASSOCIATED FACIAL LACERATION, NECK PAIN, LOW BACK PAIN, AND LEFT KNEE PAIN. DENIES LOSS OF CONSCIOUSNESS, FOCAL NUMBNESS , TINGLING OR WEAKNESS IN EXTREMITIES. Occurred: just prior to arrival Reason for Fall: slipped Injuries/Pain Location: head, face, neck, back, lower extremity Loss of Consciousness: no loss of consciousness Quality: aching Severity of Pain-Max: mild Severity of Pain-Current: mild Modifying Factors: Improves With: movement Associated Symptoms (Fall): neck pain Allergies/Adverse Reactions: codeine [Codeine] Allergy (Mild, Verified 10/31/18 08:46) "GAS IN CHEST" Penicillins Allergy (Mild, Verified 10/31/18 08:46) HANDS ITCH Home Medications: Duloxetine HCl 30 mg [Cymbalta 30 MG Capsule] 30 mg PO DAILY 07/21/18 [ History] Hx Tetanus, Diphtheria Vaccination/Date Given: (unsure) Hx Influenza Vaccination/Date Given: Yes Hx Pneumococcal Vaccination/Date Given: Yes Immunizations Up to Date: No - Review of Systems Constitutional: No Fever, No Chills Eyes: No Symptoms Ears, Nose, & Throat: No Symptoms Respiratory: No Symptoms, No Cough, No Dyspnea Cardiac: No Symptoms, No Chest Pain, No Edema, No Syncope Abdominal/Gastrointestinal: No Symptoms, No Abdominal Pain, No Nausea, No Vomiting, No Diarrhea Genitourinary Symptoms: No Dysuria Musculoskeletal: Fall, Injury, Joint Pain, No Back Pain, No Neck Pain Skin: No Rash Neurological: No Dizziness, No Focal Weakness, No Sensory Changes Psychological: No Symptoms Endocrine: No Symptoms All Other Systems: Reviewed and Negative - Past Medical History Pertinent Past Medical History: Yes Neurological History: No Pertinent History ENT History: Cataracts Cardiac History: No Pertinent History Respiratory History: No Pertinent History Endocrine Medical History: No Pertinent History Musculoskeletal History: Arthritis GI Medical History: GERD, Hernia History: No Pertinent History Psycho-Social History: No Pertinent History Female Reproductive Disorders: Other Other Medical History: hx of hernia and hiatal hernia, bulging disc, - Past Surgical History Past Surgical History: Yes Neuro Surgical History: No Pertinent History Cardiac: No Pertinent History Respiratory: No Pertinent History Gastrointestinal: Appendectomy, Cholecystectomy Genitourinary: No Pertinent History, Other Musculoskeletal: Joint Replacement Female Surgical History: Hysterectomy, Tubal Ligation Other Surgical History: RECTOCELE, varicose veins stripped resulting in venous insufficiency, bladder tie up, RIGHT KNEE ARTHROPLASTY - Social History Smoking Status: Never smoker Exposure to second hand smoke: No Drug Use: none Patient Lives Alone: No - Female History Hx Last Menstrual Period: post Hx Now: No - Nursing Vital Signs Nursing Vital Signs: Initial Vital Signs Temperature 97.0 F 10/31/18 08:38 Pulse Rate 77 10/31/18 08:38 Respiratory Rate 16 10/31/18 08:38 Blood Pressure 154/96 10/31/18 08:38 O2 Sat by Pulse Oximetry 97 10/31/18 08:38 Pain Scale Pain Intensity 0 - Jaimee Coma Score Best Eye Response ([place]): (4) open spontaneously Best Verbal Response (Jaimee): (5) oriented Best Motor Response (Jaimee): (6) obeys commands Jaimee Total: 15 - Physical Exam General Appearance: no apparent distress, alert Head Injury: swelling, tenderness (OVER LEFT FOREHEAD, A 2CM LACERATION OVER MID LEFT EYEBROW, NO PERIORBIAL CREPITUS OR ECCHYMOSIS) Eye Exam: PERRL/EOMI ENT Exam: airway nml Neck Exam: normal inspection, tenderness Respiratory/Chest Exam: normal breath sounds, No chest tenderness, No respiratory distress Cardiovascular Exam: normal heart sounds, regular rate/rhythm Gastrointestinal Exam: soft, No tenderness, No distention, No guarding, No ecchymosis Back Exam: normal inspection, No vertebral tenderness Extremity Exam: normal inspection, normal range of motion, pelvis stable, No deformities Neurologic Exam: alert, oriented x 3, cooperative, sensation nml, No motor deficits Skin Exam: normal color, warm, dry SpO2: 97 Procedures - Laceration/Wound Repair Eye Wound Location: Left (EYEBROW LACERATION) Wound Length (cm): 2 Wound's Depth, Shape: into muscle, linear Wound Explored: clean Irrigated: Yes Hibiclens Prep: Yes Anesthesia: local, 2% Lidocaine Volume Anesthetic (ccs): 3 Wound Repaired With: sutures Suture Size/Type: 5-0, nylon Number of Sutures: 7 Layer Closure?: No Sterile Dressing Applied?: Yes Splint Applied?: Yes - Radiology Exams Left Knee X-ray Interpretation: Discussed w/ radiologist (TOTAL KNEE ARTHROPLASTY WITH INTACT PROSTHESIS) Pelvis X-ray Interpretation: Discussed w/ radiologist, No Fracture (BILATERAL HIPS NO FRACTURE) - CT Exams Lumbar Spine CT Interpretation: Discussed w/radiologist (STABLE OSTEOPENIA, MULTILEVEL DEGENERATIVE SPONDYLOSIS GRADE 1 L-4 SPONDYLOLISTHESIS, NO ACUTE/FINDINGS) Cervical Spine CT Interpretation: Discussed w/radiologist (NOW INCOMPLETE C-2 ODONTOID BASE FRACTURE) Ordered Tests: Active Orders 24 hr Category Date Time Status EKG-ER Only STAT Care 10/31/18 08:54 Active IV Insertion STAT Care 10/31/18 08:54 Active CERVICAL SPINE WO CONTRAST [CT] Stat Exams 10/31/18 08:59 Completed HEAD WITHOUT CONTRAST [CT] Stat Exams 10/31/18 08:58 Completed HIPS TARAS(2V) INCL PEL IF DONE Stat Exams 10/31/18 09:00 Completed KNEE (3 VIEWS) Stat Exams 10/31/18 09:00 Completed LUMBAR SPINE W/O [CT] Stat Exams 10/31/18 08:59 Completed BMP Stat Lab 10/31/18 09:25 Completed CBC W DIFF Stat Lab 10/31/18 09:25 Completed Medication Summary Generic Name Dose Route Start Last Admin Trade Name Freq PRN Reason Stop Dose Admin Sodium Chloride 1,000 mls @ 50 mls/hr 10/31/18 09:00 10/31/18 09:11 Sodium Chloride 0.9% 1000 Ml IV 11/30/18 08:59 50 mls/hr .Q20H PIPPA Administration Discontinued Medications Generic Name Dose Route Start Last Admin Trade Name Freq PRN Reason Stop Dose Admin Fentanyl Citrate 50 mcg 10/31/18 08:54 10/31/18 09:10 Sublimaze 100 Mcg/2 Ml IV 10/31/18 08:55 50 mcg STAT ONE Administration Fentanyl Citrate Confirm 10/31/18 09:04 Sublimaze 100 Mcg/2 Ml Administered 10/31/18 09:05 Dose 100 mcg .ROUTE .STK-MED ONE Ondansetron HCl 4 mg 10/31/18 08:54 10/31/18 09:10 Zofran 4 Mg/2 Ml Vial IV 10/31/18 08:55 4 mg STAT ONE Administration Ondansetron HCl Confirm 10/31/18 09:07 Zofran 4 Mg/2 Ml Vial Administered 10/31/18 09:08 Dose 4 mg .ROUTE .STK-MED ONE Lab/Rad Data: Laboratory Result Diagrams 10/31/18 09:25 10/31/18 09:25 Laboratory Results 10/31/18 10/31/18 Range/Units 09:25 09:25 WBC 6.1 (4.0-10.5) K/mm3 RBC 4.27 (4.1-5.4) M/mm3 Hgb 13.0 (12.0-16.0) gm/dl Hct 39.7 (35-47) % MCV 93.0 (78-100) fl MCH 30.4 (26-32) pg MCHC 32.7 (32-36) g/dl RDW 13.2 (11.5-14.0) % Plt Count 189 (150-450) K/mm3 MPV 11.1 H (6-9.5) fl Gran % 58.5 (36.0-66.0) % Eos # (Auto) 0.19 (0-0.5) Absolute Lymphs (auto) 1.72 (1.0-4.6) Absolute Monos (auto) 0.59 (0.0-1.3) Lymphocytes % 28.1 (24.0-44.0) % Monocytes % 9.6 (0.0-12.0) % Eosinophils % 3.1 (0.00-5.0) % Basophils % 0.7 (0.0-0.4) % Absolute Granulocytes 3.58 (1.4-6.9) Basophils # 0.04 (0-0.4) Sodium 138 (137-145) mmol/L Potassium 4.1 (3.5-5.1) mmol/L Chloride 106 (98-107) mmol/L Carbon Dioxide 23 (22-30) mmol/L Anion Gap 12.9 (5-15) MEQ/L BUN 24 H (7-17) mg/dL Creatinine 1.17 H (0.52-1.04) mg/dL Estimated GFR 46.4 ML/MIN Glucose 102 (74-106) mg/dL Calcium 8.9 (8.4-10.2) mg/dL - Progress Progress Note: 10/31/18 10:58 IV NORMAL SALINE 50ML/HR, ZOFRAN 4MG, FENTANYL 50MCG IV 10/31/18 11:25 PATIENT LOGGED ROLLED AND PLACED ONTO PADDED BACK BOARD Discussed with : Other (DISCUSSED WITH TRAUMA PHYSICIAN DR SIMPSON AT 1040 ACCEPTS TRANSFER TO [facility]IA [facility]) - Departure Departure Disposition: Transfer Clinical Impression: CERVICAL SPINE C2-ODONTOID FRACTURE, LEFT EYEBROW LACERATION, LUMBAR CONTUSION STRAIN Condition: Stable Critical Care Time: No Referrals: SHARLA GARCIA [Primary Care Provider] -
[2018-10-31 11:11] VITALS: BP 158/84; PULSE 72
[2018-10-31 11:22] VITALS: O2SAT 97
== END 2018-10-31 11:35 | disposition short-term general hospital (02) ==
LOC: ED 08:37
DX: S12.100A Unspecified displaced fracture of second cervical vertebra, initial encounter for closed fracture (principal); S01.112A Laceration without foreign body of left eyelid and periocular area, initial encounter; S30.0XXA Contusion of lower back and pelvis, initial encounter; M54.2 Cervicalgia; M25.562 Pain in left knee; W01.198A Fall on same level from slipping, tripping and stumbling with subsequent striking against other object, initial encounter; Y92.002 Bathroom of unspecified non-institutional (private) residence as the place of occurrence of the external cause; S50.12XA Contusion of left forearm, initial encounter; S00.83XA Contusion of other part of head, initial encounter; I87.2 Venous insufficiency (chronic) (peripheral); K21.9 Gastro-esophageal reflux disease without esophagitis; R20.0 Anesthesia of skin; M19.90 Unspecified osteoarthritis, unspecified site; Z79.899 Other long term (current) drug therapy
CPT/HCPCS: 12011; 36000; 36415; 51702; 70450; 72125; 72131; 73521; 73562; 80048; 85025; 93005; 96360; 96361; 96374; 96375; 99285; J2405; J3010

== ENCOUNTER 2018-11-11 14:29 | Emergency (ER) | payer MEDICARE, OTHER ==
[2018-11-11 14:43] VITALS: BP 115/72; PULSE 99; O2SAT 97
[2018-11-11] MEDS ORDERED: BACIGUENT PACKET TP ONE (15:07)
[2018-11-11] MEDS ORDERED: BACIGUENT PACKET ONE (15:11)
--- NOTE | 2018-11-11 15:12 | ERPHSYRPT ---
- History of Present Illness Time Seen by Provider: 11/11/18 15:04 Source: patient Exam Limitations: no limitations Patient Subjective Stated Complaint: Had stitches placed above the left eye on and is here to have them removed Triage Nursing Assessment: Pt brought in by wheel chair, left forehead and eye has yellow bruising that is healing, 7 sutures above left eye healing nicely, vitals wnl, denies pain Physician History: 88-year-old white female with history of laceration left supraorbital ridge which was sutured here on October 31, 2018 here for suture removal patient denies any complaints no erythema no drainage. Past medical history includes cataracts, GERD, arthritis, hernia, bulging discs Past surgical history includes appendectomy, cholecystectomy, hysterectomy, tubal ligation, joint replacement, rectocele, varicose vein stripping, right knee replacement, bladder suspension Timing/Duration: other (ssutured here on 2018) Modifying Factors: Improves With: nothing Associated Symptoms: denies symptoms Allergies/Adverse Reactions: codeine [Codeine] Allergy (Mild, Verified 11/11/18 14:44) "GAS IN CHEST" Penicillins Allergy (Mild, Verified 11/11/18 14:44) HANDS ITCH Home Medications: No Reportable Medications [No Reported Medications] 11/11/18 [History] Hx Tetanus, Diphtheria Vaccination/Date Given: (unsure) Hx Influenza Vaccination/Date Given: Yes Hx Pneumococcal Vaccination/Date Given: Yes - Review of Systems Constitutional: No Fever, No Chills Eyes: No Symptoms Ears, Nose, & Throat: No Symptoms Respiratory: No Cough, No Dyspnea Cardiac: No Chest Pain, No Edema, No Syncope Abdominal/Gastrointestinal: No Abdominal Pain, No Nausea, No Vomiting, No Diarrhea Genitourinary Symptoms: No Dysuria Musculoskeletal: No Back Pain, No Neck Pain Skin: Other (here for suture removal left supraorbital ridge) Neurological: No Dizziness, No Focal Weakness, No Sensory Changes Psychological: No Symptoms Endocrine: No Symptoms All Other Systems: Reviewed and Negative - Past Medical History Pertinent Past Medical History: Yes Neurological History: No Pertinent History ENT History: Cataracts Cardiac History: No Pertinent History Respiratory History: No Pertinent History Endocrine Medical History: No Pertinent History Musculoskeletal History: Arthritis GI Medical History: GERD, Hernia History: No Pertinent History Psycho-Social History: No Pertinent History Female Reproductive Disorders: Other Other Medical History: hx of hernia and hiatal hernia, bulging disc, - Past Surgical History Past Surgical History: Yes Neuro Surgical History: No Pertinent History Cardiac: No Pertinent History Respiratory: No Pertinent History Gastrointestinal: Appendectomy, Cholecystectomy Genitourinary: No Pertinent History, Other Musculoskeletal: Joint Replacement Female Surgical History: Hysterectomy, Tubal Ligation Other Surgical History: RECTOCELE, varicose veins stripped resulting in venous insufficiency, bladder tie up, RIGHT KNEE ARTHROPLASTY - Social History Smoking Status: Never smoker Exposure to second hand smoke: No Drug Use: none Patient Lives Alone: No - Nursing Vital Signs Nursing Vital Signs: Initial Vital Signs Temperature 97.9 F 11/11/18 14:36 Pulse Rate 99 H 11/11/18 14:36 Blood Pressure 115/72 11/11/18 14:36 O2 Sat by Pulse Oximetry 97 11/11/18 14:36 Pain Scale Pain Intensity 0 - Physical Exam General Appearance: no apparent distress, alert, other (yellow to brown bruising left for head) Eye Exam: PERRL/EOMI, eyes nml inspection, other (sutured laceration left supraorbital ridgeno erythema no drainage) Ears, Nose, Throat Exam: normal ENT inspection, TMs normal, pharynx normal, moist mucous membranes Neck Exam: normal inspection, non-tender, supple, full range of motion Respiratory Exam: normal breath sounds, lungs clear, No respiratory distress Cardiovascular Exam: regular rate/rhythm, normal heart sounds, normal peripheral pulses, capillary refill <2 sec Gastrointestinal/Abdomen Exam: soft, normal bowel sounds, No tenderness, No mass Back Exam: normal inspection, normal range of motion, No CVA tenderness, No vertebral tenderness Extremity Exam: normal inspection, normal range of motion, pelvis stable Neurologic Exam: alert, oriented x 3, cooperative, android software engineer II-XII nml as tested, normal mood/affect, nml cerebellar function, nml station & gait, sensation nml, No motor deficits Skin Exam: other (sutured laceration left supraorbital ridge edges together well no erythema no drainage) Lymphatic Exam: No adenopathy SpO2 Interpretation: normal (97%) SpO2: 97 - Course Nursing assessment & vital signs reviewed: Yes Ordered Tests: Active Orders 24 hr Category Date Time Status Suture Removal STAT Care 11/11/18 15:07 Active Medication Summary Discontinued Medications Generic Name Dose Route Start Last Admin Trade Name Freq PRN Reason Stop Dose Admin Bacitracin Zinc 0.9 gm 11/11/18 15:07 Baciguent Packet TP 11/11/18 15:08 STAT ONE - Progress Progress: improved Progress Note: 11/11/18 15:10 88-year-old white female here for suture removal patient denies any complaints she has a sutured laceration in the left supraorbital ridge there is no erythema no drainage. Will have the nurses removed the sutures and apply bacitracin. - Departure Departure Disposition: Home (BS) Clinical Impression: Visit for suture removal Condition: Fair Critical Care Time: No Referrals: SHARLA GARCIA [Primary Care Provider] - Additional Instructions: Return home. Bacitracin to suture holes until healed. Followup with your family Dr. or return if any problems. Return for acute distress or for severe symptoms.
== END 2018-11-11 15:35 | disposition home or self-care (01) ==
LOC: ED 14:29
DX: Z48.02 Encounter for removal of sutures (principal)
CPT/HCPCS: 99283; A9270-GY

== ENCOUNTER 2019-07-29 20:42 | Emergency (ER) | payer MEDICARE, OTHER ==
--- NOTE | 2019-07-29 20:45 | ERPHSYRPT ---
- History of Present Illness Time Seen by Provider: 07/29/19 20:44 Historian: patient, family, EMS Exam Limitations: clinical condition Physician History: Is an 88-year-old white female who lives at home on her own. Per her son, the patient has been relatively active until about 4 to 5 months ago. She has intermittent periods of confusion. She has intermittent periods of forgetfulness. Over the last few days the patient's son states that the mother has been sleeping at times during the day and up all night occasionally. Today , patient was apparently dizzy and felt like she was going to pass out. In addition she was having some abdominal pain. The patient's son then called the EMS service to bring the patient to the hospital for evaluation. Patient denies chest pain and denies shortness of breath. She does state that she does feel little weak. She also states that she occasionally has constipation. Timing/Duration: intermittent, worse Activities at Onset: none Quality: cramping Abdominal Pain Onset Location: generalized abdomen Pain Radiation: no radiation Severity of Pain-Max: mild Severity of Pain-Current: mild Associated Symptoms: weakness Previous symptoms: other (Times are intermittent over the last several months. In the last few days and especially today the symptoms have worsened) Allergies/Adverse Reactions: codeine [Codeine] Allergy (Mild, Verified 11/11/18 14:44) "GAS IN CHEST" Penicillins Allergy (Mild, Verified 11/11/18 14:44) HANDS ITCH Home Medications: Cyclobenzaprine HCl [Flexeril] 5 mg PO TIDPRN 07/29/19 [History] Duloxetine HCl 30 mg [Cymbalta 30 MG Capsule] 30 mg PO HS 07/29/19 [ History] Hx Tetanus, Diphtheria Vaccination/Date Given: (unsure) Hx Influenza Vaccination/Date Given: Yes Hx Pneumococcal Vaccination/Date Given: Yes - Review of Systems Constitutional: Weakness Eyes: No Symptoms Ears, Nose, & Throat: No Symptoms Respiratory: No Symptoms Cardiac: No Symptoms Abdominal/Gastrointestinal: Abdominal Pain, Constipation, No Nausea, No Vomiting , No Diarrhea Genitourinary Symptoms: No Symptoms Musculoskeletal: No Symptoms Skin: No Symptoms Neurological: No Symptoms Psychological: No Symptoms - Past Medical History Pertinent Past Medical History: Yes Neurological History: No Pertinent History ENT History: Cataracts Cardiac History: No Pertinent History Respiratory History: No Pertinent History Endocrine Medical History: No Pertinent History Musculoskeletal History: Arthritis GI Medical History: GERD, Hernia History: No Pertinent History Psycho-Social History: No Pertinent History Female Reproductive Disorders: Other Other Medical History: hx of hernia and hiatal hernia, bulging disc, - Past Surgical History Past Surgical History: Yes Neuro Surgical History: No Pertinent History Cardiac: No Pertinent History Respiratory: No Pertinent History Gastrointestinal: Appendectomy, Cholecystectomy Genitourinary: No Pertinent History, Other Musculoskeletal: Joint Replacement Female Surgical History: Hysterectomy, Tubal Ligation Other Surgical History: RECTOCELE, varicose veins stripped resulting in venous insufficiency, bladder tie up, RIGHT KNEE ARTHROPLASTY - Social History Smoking Status: Never smoker Exposure to second hand smoke: No Drug Use: none Patient Lives Alone: No - Nursing Vital Signs Nursing Vital Signs: Initial Vital Signs Temperature 97.3 F 07/29/19 20:54 Pulse Rate 68 07/29/19 20:54 Respiratory Rate 18 07/29/19 20:54 Blood Pressure 127/66 07/29/19 20:54 O2 Sat by Pulse Oximetry 98 07/29/19 20:54 Pain Scale Pain Intensity 4 - Physical Exam General Appearance: no apparent distress, alert, anxiety Eye Exam: PERRL/EOMI, eyes nml inspection Ears, Nose, Throat Exam: normal ENT inspection, moist mucous membranes Neck Exam: normal inspection, non-tender, supple, full range of motion Respiratory Exam: normal breath sounds, lungs clear, No chest tenderness, No respiratory distress Cardiovascular Exam: regular rate/rhythm, normal heart sounds, normal peripheral pulses Gastrointestinal/Abdomen Exam: soft, normal bowel sounds, tenderness (Mild diffuse), No guarding, No rebound Pelvic Exam: not done Rectal Exam: not done Back Exam: normal inspection, normal range of motion, No CVA tenderness, No vertebral tenderness Extremity Exam: normal inspection, normal range of motion, pelvis stable Neurologic Exam: alert, oriented x 3, cooperative, 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 on the new EKG) Ordered Tests: Active Orders 24 hr Category Date Time Status EKG-ER Only STAT Care 07/29/19 20:58 Active IV Insertion STAT Care 07/29/19 20:58 Active ABDOMEN AND PELVIS W/0 CONTRAS [CT] Stat Exams 07/29/19 20:59 Taken HEAD WITHOUT CONTRAST [CT] Stat Exams 07/29/19 21:04 Taken AMYLASE Stat Lab 07/29/19 21:30 Completed CBC W DIFF Stat Lab 07/29/19 21:30 Completed CMP Stat Lab 07/29/19 21:30 Completed CULTURE,URINE Stat Lab 07/29/19 22:08 Received LIPASE Stat Lab 07/29/19 21:30 Completed Lactic Acid Stat Lab 07/29/19 21:30 Completed TROPONIN Q3H Lab 07/29/19 21:30 Completed TROPONIN Q3H Lab 07/30/19 00:00 Ordered TROPONIN Q3H Lab 07/30/19 03:00 Ordered TROPONIN Q3H Lab 07/30/19 06:00 Ordered TROPONIN Q3H Lab 07/30/19 09:00 Ordered UA W/RFX UR CULTURE Stat Lab 07/29/19 22:08 Completed Medication Summary Generic Name Dose Route Start Last Admin Trade Name Freq PRN Reason Stop Dose Admin Levofloxacin/Dextrose 750 mg in 150 mls @ 100 mls/hr 07/29/19 22:52 Levofloxacin 750mg/150ml D5w IV 07/30/19 00:21 STAT STA Discontinued Medications Generic Name Dose Route Start Last Admin Trade Name Freq PRN Reason Stop Dose Admin Sodium Chloride 500 mls @ 500 mls/hr 07/29/19 21:00 07/29/19 22:23 Sodium Chloride 0.9% 500 Ml IV 07/29/19 21:59 Infused .Q1H ONE Infusion Sodium Chloride Confirm 07/29/19 21:06 Sodium Chloride 0.9% 500 Ml Administered 07/29/19 21:07 Dose 500 mls @ ud IV .STK-MED ONE Lab/Rad Data: Laboratory Result Diagrams 07/29/19 21:30 07/29/19 21:30 Laboratory Results 02/26/20 02/26/20 02/26/20 Range/Units 22:08 21:30 21:30 WBC (4.0-10.5) K/mm3 RBC (4.1-5.4) M/mm3 Hgb (12.0-16.0) gm/dl Hct (35-47) % MCV (78-100) fl MCH (26-32) pg MCHC (32-36) g/dl RDW (11.5-14.0) % Plt Count (150-450) K/mm3 MPV (7.5-11.0) fl Gran % (36.0-66.0) % Eos # (Auto) (0-0.5) Absolute Lymphs (auto) (1.0-4.6) Absolute Monos (auto) (0.0-1.3) Lymphocytes % (24.0-44.0) % Monocytes % (0.0-12.0) % Eosinophils % (0.00-5.0) % Basophils % (0.0-0.4) % Absolute Granulocytes (1.4-6.9) Basophils # (0-0.4) Sodium 139 (137-145) mmol/L Potassium 3.9 (3.5-5.1) mmol/L Chloride 111 H (98-107) mmol/L Carbon Dioxide 23 (22-30) mmol/L Anion Gap 9.5 (5-15) MEQ/L BUN 30 H (7-17) mg/dL Creatinine 1.39 H (0.52-1.04) mg/dL Estimated GFR 37.9 ML/MIN Glucose 119 H (74-106) mg/dL Lactic Acid (0.4-2.0) Calcium 8.7 (8.4-10.2) mg/dL Total Bilirubin 0.70 (0.2-1.3) mg/dL AST 22 (14-36) U/L ALT 8 (0-35) U/L Alkaline Phosphatase 59 (38-126) U/L Troponin I < 0.012 (0.000-0.034) ng/mL Serum Total Protein 6.7 (6.3-8.2) g/dL Albumin 3.5 (3.5-5.0) g/dL Amylase 61 (30-110) U/L Lipase 71 (23-300) U/L Urine Color YELLOW (YELLOW) Urine Appearance CLOUDY (CLEAR) Urine pH 7.0 (5-6) Ur Specific Sterling 1.014 (1.005-1.025) Urine Protein NEGATIVE (Negative) Urine Ketones NEGATIVE (NEGATIVE) Urine Blood NEGATIVE (0-5) Eliot/ul Urine Nitrite POSITIVE (NEGATIVE) Urine Bilirubin NEGATIVE (NEGATIVE) Urine Urobilinogen NEGATIVE (0-1) mg/dL Ur Leukocyte Esterase LARGE (NEGATIVE) Urine WBC (Auto) 51-100 (0-5) /HPF Urine RBC (Auto) 3-5 (0-2) /HPF U Hyaline Cast (Auto) 3-5 (0-2) /LPF U Epithel Cells (Auto) RARE (FEW) /HPF Urine Bacteria (Auto) PACKED (NEGATIVE) /HPF Urine Mucus (Auto) SLIGHT (NEGATIVE) /HPF Urine Culture Reflexed YES (NO) Urine Glucose NEGATIVE (NEGATIVE) mg/dL 07/29/19 07/29/19 Range/Units 21:30 21:30 WBC 5.7 (4.0-10.5) K/mm3 RBC 4.10 (4.1-5.4) M/mm3 Hgb 12.4 (12.0-16.0) gm/dl Hct 38.7 (35-47) % MCV 94.4 (78-100) fl MCH 30.2 (26-32) pg MCHC 32.0 (32-36) g/dl RDW 13.3 (11.5-14.0) % Plt Count 193 (150-450) K/mm3 MPV 11.2 H (7.5-11.0) fl Gran % 69.3 H (36.0-66.0) % Eos # (Auto) 0.15 (0-0.5) Absolute Lymphs (auto) 1.10 (1.0-4.6) Absolute Monos (auto) 0.48 (0.0-1.3) Lymphocytes % 19.2 L (24.0-44.0) % Monocytes % 8.4 (0.0-12.0) % Eosinophils % 2.6 (0.00-5.0) % Basophils % 0.5 (0.0-0.4) % Absolute Granulocytes 3.98 (1.4-6.9) Basophils # 0.03 (0-0.4) Sodium (137-145) mmol/L Potassium (3.5-5.1) mmol/L Chloride (98-107) mmol/L Carbon Dioxide (22-30) mmol/L Anion Gap (5-15) MEQ/L BUN (7-17) mg/dL Creatinine (0.52-1.04) mg/dL Estimated GFR ML/MIN Glucose (74-106) mg/dL Lactic Acid 0.9 (0.4-2.0) Calcium (8.4-10.2) mg/dL Total Bilirubin (0.2-1.3) mg/dL AST (14-36) U/L ALT (0-35) U/L Alkaline Phosphatase (38-126) U/L Troponin I (0.000-0.034) ng/mL Serum Total Protein (6.3-8.2) g/dL Albumin (3.5-5.0) g/dL Amylase (30-110) U/L Lipase (23-300) U/L Urine Color (YELLOW) Urine Appearance (CLEAR) Urine pH (5-6) Ur Specific Sterling (1.005-1.025) Urine Protein (Negative) Urine Ketones (NEGATIVE) Urine Blood (0-5) Eliot/ul Urine Nitrite (NEGATIVE) Urine Bilirubin (NEGATIVE) Urine Urobilinogen (0-1) mg/dL Ur Leukocyte Esterase (NEGATIVE) Urine WBC (Auto) (0-5) /HPF Urine RBC (Auto) (0-2) /HPF U Hyaline Cast (Auto) (0-2) /LPF U Epithel Cells (Auto) (FEW) /HPF Urine Bacteria (Auto) (NEGATIVE) /HPF Urine Mucus (Auto) (NEGATIVE) /HPF Urine Culture Reflexed (NO) Urine Glucose (NEGATIVE) mg/dL - Progress Progress: improved Progress Note: 07/29/19 23:02 The CAT scan of the head shows no acute intracranial process. The CAT scan of the abdomen and pelvis shows moderate colonic diverticulosis without acute diverticulitis, a larger left anterior pelvic cyst measuring 5.6 cm compared to previous 4.5 cm, severe lower lumbar spinal stenosis. Given the increased size of the cystic ovarian cyst, ovarian neoplasm is a possibility and the patient will need to follow-up with gynecology. This was discussed with the patient and her son Counseled pt/family regarding: lab results, diagnosis, need for follow-up, rad results - Departure Departure Disposition: Home Clinical Impression: Confusion, UTI (urinary tract infection), Abdominal pain, Pelvic cyst Condition: Stable Critical Care Time: No Referrals: SHARLA GARCIA [Primary Care Provider] - Additional Instructions: Drink plenty of fluids. Take medication as prescribed. Follow-up with your primary care physician tomorrow to make arrangements for follow-up appointment. Prescriptions: Ciprofloxacin [Cipro 500 MG] 500 mg PO BID #20 tablet
[2019-07-29] MEDS ORDERED: Sodium Chloride 0.9% 500 ML 500 ML IV ONE ×2 (21:00→21:06)
[2019-07-29 21:37] LABS: Absolute Neutrophil Ct (ANC) 3.98 (1.4-6.9); BASOPHIL % 0.5 % (0.0-0.4); Basophil (Absolute #) 0.03 (0-0.4); Eosinophil % 2.6 % (0.00-5.0); Eosinophil (Absolute #) 0.15 (0-0.5); Hematocrit 38.7 % (35-47); Hemoglobin 12.4 gm/dl (12.0-16.0); Lymphocytes % 19.2 % (24.0-44.0); Mean Cell Volume 94.4 fl (78-100); Mean Corpuscular Hemoglobin 30.2 pg (26-32); Mean Platelet Volume 11.2 fl (7.5-11.0); Monocyte (Absolute #) 0.48 (0.0-1.3); Monocytes % 8.4 % (0.0-12.0); Neutrophil % 69.3 % (36.0-66.0); Platelet Count 193 K/mm3 (150-450); Red Cell Distribution Width 13.3 % (11.5-14.0); White Blood Count 5.7 K/mm3 (4.0-10.5)
[2019-07-29 21:51] LABS: ALBUMIN 3.5 g/dL (3.5-5.0); ANION GAP 9.5 MEQ/L (5-15); BILIRUBIN,TOTAL 0.7 mg/dL (0.2-1.3); Calcium 8.7 mg/dL (8.4-10.2); Creatinine 1 1.39 mg/dL (0.52-1.04); Potassium 3.9 mmol/L (3.5-5.1); Total Protein 6.7 g/dL (6.3-8.2)
[2019-07-29 22:24] LABS: Appearance CLOUDY (CLEAR); Bacteria PACKED /HPF (NEGATIVE); Bilirubin NEGATIVE (NEGATIVE); Blood NEGATIVE Ery/ul (0-5); Epithelial Cells RARE /HPF (FEW); Glucose NEGATIVE (NEGATIVE); Ketones NEGATIVE (NEGATIVE); Leukocyte Esterase LARGE (NEGATIVE); Mucus SLIGHT /HPF (NEGATIVE); Nitrite POSITIVE (NEGATIVE); Protein,Urine Dip NEGATIVE (Negative); Specific Gravity 1.014 (1.005-1.025); Urobilinogen NEGATIVE mg/dL (0-1); WBC 51-100 /HPF (0-5)
[2019-07-29] MEDS ORDERED: LEVOFLOXACIN 750MG/150ML D5W 750 MG/150 ML BAG IV STA (22:52)
[2019-07-29] MEDS ORDERED: LEVOFLOXACIN 750MG/150ML D5W 750 MG/150 ML BAG IV ONE (23:04)
[2019-07-30 01:09] VITALS: BP 153/87; PULSE 90; O2SAT 100
--- NOTE | 2019-07-30 11:44 | XRAY ---
Exam: CT of the head without IV contrast from 07/29/2019. CTDI: 53.92 mGy. Comparison: CT of the head without IV contrast from 10/31/2018. Indication: 88-year-old female with syncopal episode with fall, patient struck forehead against floor, no loss of consciousness. Technique: Non-IV contrast axial images were obtained through the brain. Reconstructed coronal and sagittal images were created and reviewed. Findings: The ventricles are mildly enlarged consistent with atrophy. There is moderate prominence of the cortical sulci, sylvian fissures, and basilar cisterns consistent with age-related volume loss. No focal mass effect or midline shift is seen. No acute intracranial bleed or abnormal extra-axial fluid collection is seen. I note some moderate chronic bilateral periventricular and subcortical white matter ischemic changes, no significant change from 10/31/2018. Prior scalp hematoma overlying the upper left forehead is no longer seen. No new low attenuation ischemic infarct is seen. Structures of the posterior fossa appear unremarkable. Some vascular calcification is seen within the left vertebral artery and carotid siphons. Minimal mucosal thickening is seen at the inferior aspect of the right maxillary sinus representing no change. No acute paranasal sinus disease is seen. No air-fluid levels are seen. The calvarium of the skull is intact. The mastoid air cells are well aerated. The orbits appear unremarkable. Impression: 1. No acute intracranial bleed or other acute intracranial process is seen. 2. Age-related atrophy and chronic microvascular ischemic changes are again noted representing no change. 3. No fracture of the calvarium of the skull is seen. Prior left frontal scalp hematoma on 10/31/2018 is no longer present.
--- NOTE | 2019-07-30 12:18 | XRAY ---
Exam: CT of the abdomen and pelvis without IV contrast from 07/29/2019. CTDI: 20.01 mGy. Comparison: CT of the abdomen and pelvis without IV contrast from 03/02/2014. Indication: 88-year-old female with near syncopal episode and fall, striking her forehead and abdomen, complains of periumbilical pain. History of hiatal hernia and GERD. The patient gives a history of prior hysterectomy, cholecystectomy, appendectomy, bladder surgery, and rectocele repair. Technique: Non-IV contrast axial images were obtained through the abdomen and pelvis. Reconstructed coronal and sagittal images were created and reviewed. No oral contrast was given. Findings: The visualized lung bases reveal minimal posterior bibasilar compression atelectatic changes. No acute lung base disease is seen. I again see a small hiatal hernia representing no change. The liver and spleen appear of normal size. No mass or intrahepatic biliary duct distention is seen. Surgical clips consistent with prior cholecystectomy are noted within the right upper quadrant. I again see an apparent fallen clip adjacent to the lower posterior medial margin of the liver representing no change. The pancreas and adrenal glands appear unremarkable. The kidneys are somewhat small with the right kidney measuring 8.4 cm in length on coronal image #84 and the left kidney measuring 8.3 cm in length on coronal image #80. This suggests some mild bilateral renal atrophy. I see no definite renal mass, hydronephrosis, or renal calculi. There is an extrarenal pelvis on the right. The ureters are not dilated. Moderate atherosclerotic vascular calcification is seen within the abdominal aorta and its branches. I see no definite abdominal aortic aneurysm or abnormal retroperitoneal lymphadenopathy. No free intraperitoneal air is seen. The anterior abdominal wall appears flaccid. The bowel appears nonobstructed. I see no findings of appendicitis within the right lower quadrant. I'm given a history of the patient has had a prior appendectomy. Mild descending colon and sigmoid colon diverticulosis without evidence of diverticulitis is seen. A low-attenuation round left pelvic adnexal mass is seen measuring about 5.2 cm x 5.45 cm in cross section on axial image #69. This is larger than that noted on 03/02/2014 when it measured about 4.65 cm x 4.5 cm in cross section. The region of interest measures +7.45 Hounsfield units suggesting a cystic nature. I again note a bright focal calcification along the upper left lateral margin. This may represent a left ovarian cyst. Correlate clinically. Some other type of slowly growing cystic ovarian neoplasm is not completely excluded. Numerous calcified phleboliths are seen within the lower pelvis on each side of midline. The urinary bladder is mildly distended. No free fluid or enlarged pelvic lymph nodes are seen. I again see a small protruding left inguinal hernia representing no change from 2014. Old fracture deformities are seen involving L1 and L2. There is mild anterolisthesis of L4 over L5 without spondylolysis. Multilevel degenerative disc disease is seen at L2-L3, L3-L4, and L4-L5 with vacuum disc phenomena. Severe lower lumbar central canal stenosis is seen, most marked at L3-L4 and L4-L5, followed by L5-S1. Impression: 1. Left pelvic adnexal cystic mass measuring up to 5.45 cm in maximum diameter which is somewhat larger than that noted in 2014. Because of the increased size, a cystic ovarian neoplasm is possible. Consider gynecology consult. 2. Small hiatal hernia, evidence of prior cholecystectomy, mild bilateral renal atrophy, and left-sided colon diverticulosis without evidence of acute diverticulitis are seen. I also see some surgical clips within the upper right pelvis from prior surgery representing no change. 3. Skeletal findings, as discussed above.
== END 2019-07-30 01:08 | disposition home or self-care (01) ==
LOC: ED 20:42
DX: R41.0 Disorientation, unspecified (principal); N39.0 Urinary tract infection, site not specified; R10.9 Unspecified abdominal pain; N94.89 Other specified conditions associated with female genital organs and menstrual cycle
CPT/HCPCS: 36000; 36415; 70450; 74176; 80053; 81001; 82150; 83605; 83690; 84484; 85025; 87077; 87086; 87186; 93005; 96360; 96365; 99284; J1956